=== PATIENT | female | born 2005 | race Caucasian/White ===

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

== ENCOUNTER 2024-02-02 21:38 | Emergency (ER) | payer MEDICAID ==
[~2024-02-02] VITALS: Ht 165.1 cm; Wt 61.8 kg
[~2024-02-02 21:38] MED LIST changes: +PHEN-716 PO
[2024-02-02] MEDS ORDERED: LIDO700A32 TOP (23:01)
[2024-02-02] MEDS ORDERED: HYDR-3965 PO (23:01)
[2024-02-02] MEDS ORDERED: CYCL-1 PO (23:01)
[2024-02-02] MEDS: dexamethasone sod phosphate 10mg/ml inj IM STA (23:08)
[2024-02-02] MEDS: ketorolac trometh. 30mg/ml inj. IM ONE (23:08)
[2024-02-02] MEDS: LIDOcaine 5% patch TP SCH (23:09)
[2024-02-02] MEDS: HYDROcodone/acetaminophen 10/325mg tab PO ONE (23:09)
[2024-02-02] MEDS: ondansetron 4mg rapidly disintigrating tab PO ONE (23:09)
[2024-02-02] MEDS: cyclobenzaprine 10mg tablet PO ONE (23:09)
[2024-02-02 23:11] VITALS: BP 127/80; PULSE 87; RESP 17; TEMP 98.7; O2SAT 99
== END 2024-02-02 23:21 | disposition home or self-care (01) ==
LOC: ER 21:39
DX: S20.212A Contusion of left front wall of thorax, initial encounter (principal); M54.9 Dorsalgia, unspecified; Z79.899 Other long term (current) drug therapy; X58.XXXA Exposure to other specified factors, initial encounter; Y93.89 Activity, other specified; Y92.89 Other specified places as the place of occurrence of the external cause; Y99.8 Other external cause status
CPT/HCPCS: 71046; 72070; 72100; 96372; 99284; J1100; J1885

== ENCOUNTER 2025-04-01 23:36 | Emergency (ER) | payer MEDICAID ==
[~2025-04-01] VITALS: Ht 165.1 cm; Wt 70.5 kg
[~2025-04-01 23:36] MED LIST changes: +CYCL-1 PO; +LIDO-52 TOP
[2025-04-02 00:04] VITALS: TEMP 98.3
[2025-04-02 00:28] LABS: MEAN PLATELET VOLUME 10.1 FL (7.4-10.4); RED CELL DISTRIBUTION WIDTH 16.6 % (11.5-14.5)
--- NOTE | 2025-04-02 00:42 | Physician Documentation ---
History of Present Illness Chief Complaint: Abdominal Pain Stated Complaint: SHARP STOMACH PAINS Primary Medical Doctor: NONE HPI This is a 19-year-old female who presents with sudden onset of left lower quadrant abdominal pain described as sharp and stabbing, patient reports no associated nausea, vomiting, or diarrhea and no recent fevers or bloody stools. Patient reports that she was bending over giving her child a bath when pain started, reports some mild discomfort intermittently through the day onset of sharp stabbing pain. Patient reports no other acute symptoms or concerns. Medication Reconciliation Allergies: Coded Allergies: No Known Allergies (Unverified , 04/02/25) Scheduled Cyclobenzaprine* (Cyclobenzaprine*), 1 TAB PO HS Lidocaine (Lidoderm), 1 PATCH TOP DAILY Ondansetron Hcl (Zofran), 1 TAB PO Q6H PRN Phenazopyridine HCl (Pyridium), 1 TAB PO Q8H Phenazopyridine HCl (Pyridium), 1 TAB PO Q8H Past Medical History Past Medical History: No Pertinent History Past Surgical History: no surgical history Alcohol Use: None Drug Use: none Lives with: Family Lives In: Home Review of Systems ROS As stated above in the HPI, otherwise all systems are reviewed and negative. Physical Exam Vital Signs: Temperature: 98.3, Source: Oral, Heart Rate: 68, Respiratory Rate: 16, BP: 109/65, Pulse Oximetry: 99, Weight: 70.450 Physical Exam VITALS: Reviewed and as above. GENERAL: Alert, nontoxic appearing, no apparent distress. HEENT: RESPIRATORY: No increased work of breathing, no respiratory distress, speaking in full clear sentences CHEST: CV: BACK: GI: MUSCULOSKELETAL: SKIN: NEURO: PSYCH: Progress Results/Orders Results/Orders Vital Signs 04/02/25 00:04 Temp 98.3 Pulse 68 Resp 16 B/P (MAP) 109/65 Pulse Ox 99 Laboratory Tests Test 04/02/25 00:20 White Blood Count 8.8 Red Blood Count 4.88 Hemoglobin 12.4 Hematocrit 37.9 Mean Corpuscular Volume 77.5 L Mean Corpuscular Hemoglobin 25.4 L Mean Corpuscular Hemoglobin Concent 32.8 L Red Cell Distribution Width 16.6 H Platelet Count 255 Mean Platelet Volume 10.1 Neutrophils (%) (Auto) 67.9 Lymphocytes (%) (Auto) 25.1 Monocytes (%) (Auto) 5.5 Eosinophils (%) (Auto) 1.3 Basophils (%) (Auto) 0.2 Neutrophils # (Auto) 6.0 Lymphocytes # (Auto) 2.2 Monocytes # (Auto) 0.5 Eosinophils # (Auto) 0.1 Basophils # (Auto) 0.0 CBC Comment Chemistry Comments Medical Decision Making Findings Patient presented to the emergency room with four month history of left-sided abdominal pain. Differentials include but are not limited to intra-abdominal infection, ovulation pain, ovarian pathology, constipation, urinary tract infection therefore emergent labs ordered which were reassuring. Patient's physical exam is reassuring she is nontoxic appearing with stable vitals in the fact that this has been going on for four months is reassuring and given overall workup and findings I do not feel patient requires CT scan as I believe the risk of radiation exposure outweighs any benefit at this juncture. ER precautions discussed Departure Disposition: 01 HOME / SELF CARE / HOMELESS Impression: Primary Impression: Abdominal pain Condition: Stable Discharge Instructions: Abdominal Pain (Nonspecific) Referrals: NO PRIMARY CARE PROVIDER (PCP) Signature Scribe Signature: No scribe Attestation: The note accurately reflects work and decisions made by me.Williams Ramos MD 04/02/25 02:25 JADIEL RUIZ Apr 02, 2025 00:42 WILLIAMS RAMOS MD Apr 02, 2025 02:25
[2025-04-02 00:46] LABS: CREATININE 0.82 MG/DL (0.40-0.90); TOTAL CARBON DIOXIDE 28.7 MMOL/L (24-32); eCRCL 98 ML/MIN; eGFR 89 ML/MIN
[2025-04-02 01:58] VITALS: BP 125/70; PULSE 70; RESP 16; O2SAT 100
[2025-04-02 02:06] LABS: URINE HCG NEGATIVE (NEG)
[2025-04-02 02:14] LABS: LEUKOCYTE ESTERASE ,URINE NEGATIVE (Neg); NITRITES, URINE NEGATIVE (Neg); OCCULT BLOOD,URINE NEGATIVE (Neg)
[2025-04-02 02:16] LABS: UA COLLECTION TYPE NON-SPECIFIED
== END 2025-04-02 02:35 | disposition home or self-care (01) ==
LOC: ER 23:37
DX: R10.32 Left lower quadrant pain (principal); Z79.899 Other long term (current) drug therapy
CPT/HCPCS: 36415; 80048; 81003; 81025; 83690; 85025; 99283